=== PATIENT | male | born 1975 | race American Indian/Alaskan Native ===

== ENCOUNTER 2018-05-07 17:56 | Emergency (ER) | payer MEDICAID ==
[~2018-05-07] VITALS: Ht 160 cm; Wt 50.8 kg
[~2018-05-07 17:56] MED LIST: IBUP-1984 PO; IBUP-1986 PO
[2018-05-07 18:26] VITALS: BP 100/67
[2018-05-07] MEDS ORDERED: SULF1TAB49 PO (18:41)
== END 2018-05-07 18:56 | disposition home or self-care (01) ==
LOC: ER 17:56
DX: N63.20 Unspecified lump in the left breast, unspecified quadrant (principal); J45.909 Unspecified asthma, uncomplicated; F12.90 Cannabis use, unspecified, uncomplicated; Z88.6 Allergy status to analgesic agent
CPT/HCPCS: 99283

== ENCOUNTER 2019-10-13 19:43 | Emergency (ER) | payer MEDICAID ==
[~2019-10-13] VITALS: Ht 160 cm; Wt 63.6 kg
[2019-10-13] MEDS ORDERED: TETanus/Pertussis (Acell)/Diphther VAC/PF (Tdap-Adult) 0.5ml syringe IMVAC ONE (21:10)
[2019-10-13] MEDS ORDERED: LIDOcaine 1% W/epiNEPHrine 1:200,000 10ml vial IJ ONE (21:10)
[2019-10-13] MEDS ORDERED: CEPH-572 PO (22:00)
[2019-10-13] MEDS ORDERED: SULF1TAB49 PO (22:00)
[2019-10-13 22:15] VITALS: BP 108/76
== END 2019-10-13 22:17 | disposition home or self-care (01) ==
LOC: ER 19:43
DX: L02.415 Cutaneous abscess of right lower limb (principal); J45.909 Unspecified asthma, uncomplicated; F12.90 Cannabis use, unspecified, uncomplicated; Z98.890 Other specified postprocedural states; Z88.5 Allergy status to narcotic agent; Z79.2 Long term (current) use of antibiotics; Z79.899 Other long term (current) drug therapy
CPT/HCPCS: 10060; 90471; 90715; 99283; 99285

== ENCOUNTER 2019-11-20 14:51 | Emergency (ER) | payer MEDICAID ==
[~2019-11-20] VITALS: Ht 154.9 cm; Wt 54.1 kg
[2019-11-20 15:10] VITALS: BP 117/74
[2019-11-20] MEDS ORDERED: orphenadrine citrate 60mg/2ml inj. IM ONE (15:45)
[2019-11-20] MEDS ORDERED: ketorolac tromethamine 15mg/ml inj. IM ONE (15:45)
[2019-11-20] MEDS ORDERED: IBUP-1984 PO (16:18)
[2019-11-20] MEDS ORDERED: ORPH100T2 PO (16:18)
== END 2019-11-20 16:50 | disposition home or self-care (01) ==
LOC: ER 14:51
DX: M54.5 Low back pain (principal); J45.909 Unspecified asthma, uncomplicated; F12.90 Cannabis use, unspecified, uncomplicated; Z72.89 Other problems related to lifestyle; Z98.890 Other specified postprocedural states; Z88.5 Allergy status to narcotic agent; Z79.899 Other long term (current) drug therapy
CPT/HCPCS: 96372; 99284; J1885; J2360